=== PATIENT | male | born 1980 | race Caucasian/White ===

== ENCOUNTER → 2018-04-29 | Outpatient (CLI) | payer BC ==
[~2018-04-29] MED LIST: MDRDP21 PO; [UNRECOGNIZED DRUG - CODE] TOP
--- NOTE | 2018-04-29 07:39 | DIAGNOSTIC IMAGING REPORT ---
FUSION CT SINUSES W/O HISTORY: 37 years-old Male J32.9 Chronic sinusitis 37-YEAR-OLD MALE WITH CHRONIC SINUSITIS. COMPARISON: None available TECHNIQUE: Multiple axial CT images of the paranasal sinuses were obtained without the use of IV contrast. A dose lowering technique was used consistent with the principals of ALARA. FINDINGS: Imaged intracranial structures demonstrate no acute process. The soft tissues and orbits appear to be unremarkable. There is no calvarial fracture. Mastoid air cells and middle ear cavities are clear. Minimal right and mild left polypoid mucosal thickening of the maxillary sinuses. Sphenoid sinuses are clear. The frontal sinuses are generally clear with a single 3 mm area of polypoid mucosal thickening noted about the medial inferior right frontal sinus on image 252 series 3. There is mild mucosal thickening involving a few anterior and posterior ethmoid air cells bilaterally. Minimal mucosal thickening of the nasal terminates. No large kate bullosa. There is only minimal rightward bowing and spurring of the nasal septum. Maxillary ostemia units, frontoethmoidal and sphenoethmoidal recesses are patent. Taty tres appears normal. No Juan Alberto cell. No facial bone fracture or dislocation. IMPRESSION: 1. Mild paranasal sinus disease as above, most pronounced within the left maxillary sinus. 2. Patency of the sinus outflow tracts. 3. Minimal rightward bowing and spurring of the nasal septum. The above report was generated using voice recognition software. It may contain grammatical, syntax or spelling errors. Electronically signed by: Benji Bobo M.D. 04/29/2018 7:37 AM Dictated Date/Time: 04/29/2018 7:31 AM
== END | disposition home or self-care (01) ==
LOC: C.CTS 07:09
DX: J32.9 Chronic sinusitis, unspecified (principal)